=== PATIENT | male | born 1965 | race Caucasian/White ===

== ENCOUNTER 2021-05-15 14:14 | Emergency (ER) | payer OTHER, SELFPAY ==
[2021-05-15 14:30] VITALS: BP 136/84; PULSE 74; RESP 14; TEMP 37.5; O2SAT 95; BMI 31.5
[2021-05-15 15:15] LABS: SARS Covid-2 Antigen Negative (Negative)
== END 2021-05-15 17:12 | disposition left against medical advice (07) ==
LOC: ER 14:22
PROVIDERS: Physician Assistant; Emergency Provider Family Medicine
DX: Z53.21 Procedure and treatment not carried out due to patient leaving prior to being seen by health care provider (principal)
CPT/HCPCS: 87426